=== PATIENT | female | born 1950 ===

== ENCOUNTER 2018-02-15 06:40 | Emergency (ER) | payer OTHER ==
[2018-02-15 07:08] VITALS: O2SAT 98
[2018-02-15] MEDS ORDERED: Sodium Chloride 0.9% 1,000 ML IV ONE (07:37)
[2018-02-15] MEDS ORDERED: Sodium Chloride 0.9% 1,000 ML ONE (07:55)
[2018-02-15] MEDS ORDERED: Morphine 4 MG/ML VIAL ONE (07:55)
--- NOTE | 2018-02-15 07:58 | RAD ---
PROCEDURE: CHEST RADIOGRAPH, 1 VIEW HISTORY: abd pain COMPARISON: None available. FINDINGS: LUNGS: Clear. Low-normal lung volumes PLEURA: No pneumothorax or pleural fluid seen. CARDIOVASCULAR: Normal. OSSEOUS STRUCTURES: No significant abnormalities. VISUALIZED UPPER ABDOMEN: Normal. OTHER FINDINGS: None. IMPRESSION: No active disease.
--- NOTE | 2018-02-15 08:11 | C.PDOC ---
History Of Present Illness 67 y/o female presents to the ER complaining of abdominal pain which has been present for the past 2 days. Patient states that the pain is located in the upper abdomen. Patient reports that the pain is associated with nausea, vomiting , and non-bloody diarrhea. Denies having CP, SOB, hx of abdominal surgeries, and sick contacts. Time Seen by Provider: 02/15/18 07:12 Chief Complaint (Nursing): Abdominal Pain History Per: Patient History/Exam Limitations: no limitations Onset/Duration Of Symptoms: Days Current Symptoms Are (Timing): Still Present Severity: Moderate Associated Symptoms: Nausea, Vomiting, Diarrhea. denies: Fever, Chills Past Medical History Reviewed: Historical Data, Nursing Documentation, Vital Signs Vital Signs: Last Vital Signs Temp 98.4 F 02/15/18 10:38 Pulse 82 02/15/18 10:38 Resp 18 02/15/18 10:38 BP 102/64 02/15/18 10:38 Pulse Ox 98 02/15/18 10:57 - Medical History PMH: Hyperlipidemia Surgical History: No Surg Hx Family History: States: No Known Family Hx - Social History Hx Alcohol Use: No Hx Substance Use: No Review Of Systems Except As Marked, All Systems Reviewed And Found Negative. Constitutional: Negative for: Fever, Chills Cardiovascular: Negative for: Chest Pain Respiratory: Negative for: Shortness of Breath Gastrointestinal: Positive for: Nausea, Vomiting, Abdominal Pain, Diarrhea Physical Exam - Physical Exam Appears: Non-toxic, No Acute Distress Skin: Normal Color, Warm, Dry Head: Atraumatic, Normacephalic Eye(s): bilateral: Normal Inspection Nose: Normal Oral Mucosa: Moist Neck: Supple Chest: Symmetrical Cardiovascular: Rhythm Regular Respiratory: Normal Breath Sounds, No Rales, No Rhonchi, No Wheezing Gastrointestinal/Abdominal: Bowel Sounds ((+) bowel sounds), Soft, Tenderness ( epigastric, RUQ and LUQ tenderness ) Neurological/Psych: Oriented x3, Normal Speech ED Course And Treatment - Laboratory Results Result Diagrams: 02/15/18 08:16 02/15/18 08:16 ECG: Interpreted By Me, Viewed By Me ECG Rhythm: Sinus Rhythm Interpretation Of ECG: NSR with normla intervals, normal axises, and non- specific ST/T wave changes Rate From EC O2 Sat by Pulse Oximetry: 98 (RA) Pulse Ox Interpretation: Normal - Radiology CXR: Interpreted by Me, Viewed By Me CXR Interpretation: Yes: No Acute Disease - CT Scan/US CT - Abd. & Pelv. Other Rad Studies (CT/US): Read By Radiologist, Radiology Report Reviewed CT/US Interpretation: PROCEDURE: CT Abdomen and Pelvis with intravenous contrast. HISTORY: Abdominal pain. COMPARISON: None. TECHNIQUE: Multiple contiguous axial images were performed through the abdomen and pelvis with the use of intravenous contrast. Subsequently, sagittal and coronal reformatted images were obtained. Contrast dose: 100 cc of Visipaque 320 intravenous contrast. Radiation dose: Total exam DLP = 261 mGy-cm. This CT exam was performed using one or more of the following dose reduction techniques: Automated exposure control, adjustment of the mA and/or kV according to patient size, and/or use of iterative reconstruction technique. FINDINGS: LOWER THORAX : Scattered atelectasis. Some focal nodular consolidation noted within the posterior aspect of the lingula. LIVER: Mild fatty infiltration of the liver. GALLBLADDER AND BILE DUCTS: Unremarkable. PANCREAS: Unremarkable. No gross lesion or ductal dilatation. SPLEEN: Unremarkable. ADRENALS: Unremarkable. No mass. KIDNEYS AND URETERS: Unremarkable. No hydronephrosis. No solid mass. VASCULATURE: Unremarkable. No aortic aneurysm. BOWEL: Mild gastric wall thickening. Few distended loops of small bowel seen within the upper mid abdomen. Fluid-filled colon suggestive for diarrhea illness. APPENDIX: Grossly preserved. PERITONEUM: Unremarkable. No free fluid. No free air. LYMPH NODES: Unremarkable. No enlarged lymph nodes. BLADDER: Unremarkable. REPRODUCTIVE: 2.4 centimeter right adnexal cyst. Clinical correlation. BONES : Degenerative changes in the spine. OTHER FINDINGS: Small fat containing ventral abdominal wall hernia. IMPRESSION: Fluid-filled colon suggestive for diarrhea illness. Mild gastric thickening, nonspecific. Clinical correlation. Few mildly distended loops of small bowel in the upper mid abdomen. Clinical correlation. Underlying gastroenteritis cannot be excluded. Clinical correlation. Fatty infiltration of the liver. 2.4 centimeter right adnexal cyst. Clinical correlation. Scattered atelectasis within the lung smith with some focal nodular consolidation at the posterior aspect of the lingula. Medical Decision Making Medical Decision Making: Assessment: Abdominal Pain Plan: --Labs --UA --ECG --CXR --CT -Abd & Pelv. -- Morphine IV --Protonix IV -- IV Fluids Patient state improvement in symptoms. Will discharge home to follow up with pmd in 2 days. Disposition Counseled Patient/Family Regarding: Studies Performed, Diagnosis, Need For Followup, Rx Given - Disposition Referrals: [facility] [Outside] Disposition: HOME/ ROUTINE Disposition Time: 10:01 Condition: IMPROVED Additional Instructions: follow up with your doctor in 2 days call to make an appointment take medications as prescribed return to ER if symptoms worsens or progress Prescriptions: Famotidine [Pepcid] 20 mg PO BID #20 tab Ondansetron ODT [Zofran ODT] 4 mg PO TID PRN #12 odt PRN Reason: Nausea/Vomiting Instructions: Acute Abdomen (Belly Pain), Adult (DC) Forms: Gen Discharge Inst Georgian, mcTEL (Georgian) Print Language: STATELESS - Clinical Impression Clinical Impression: Abdominal pain - Scribe Statement The provider has reviewed the documentation as recorded by the Dennys Monge Provider Attestation: All medical record entries made by the Dennys were at my direction and personally dictated by me. I have reviewed the chart and agree that the record accurately reflects my personal performance of the history, physical exam, medical decision making, and the department course for this patient. I have also personally directed, reviewed, and agree with the discharge instructions and disposition.
[2018-02-15 08:19] LABS: BASO % 0.2 % (0.0-2.0); EOS # 0.1 K/uL (0.0-0.7); EOS % 0.7 % (0.0-4.0); HEMOGLOBIN 14.4 g/dL (11.0-16.0); LYMPH # 0.7 K/uL (1.0-4.3); LYMPH % 9.6 % (20.0-40.0); MEAN CELL VOLUME 87.2 fL (81.0-99.0); MEAN CORPUSCULAR HEMOGLOBIN 30.3 pg (27.0-31.0); MEAN CORPUSCULAR HGB CONC 34.7 g/dL (33.0-37.0); MEAN PLATELET VOLUME 8.5 fL (7.2-11.7); MONO # 0.5 K/uL (0.0-0.8); MONO % 6.3 % (0.0-10.0); NEUT # 6.5 K/uL (1.8-7.0); NEUT % 83.2 % (50.0-75.0); NRBC % 0.1 % (0.0-2.0); PLATELET COUNT 304 K/uL (130-400); RBC 4.75 Mil/uL (3.80-5.20); RED CELL DISTRIBUTION WIDTH 14.4 % (11.5-14.5); WHITE BLOOD COUNT 7.8 K/uL (4.8-10.8)
[2018-02-15 08:31] LABS: ALB/GLOB RATIO 0.9 (1.0-2.1); ALBUMIN 4.3 g/dL (3.5-5.0); ALT/SGPT 21 U/L (9-52); AST/SGOT 22 U/L (14-36); BLOOD UREA NITROGEN 14 mg/dL (7-17); CALCIUM 9.5 mg/dl (8.6-10.4); GFR AFRICAN-AMERICAN > 60; GFR NON-AFRICAN AMERICAN > 60; LIPASE 60 U/L (23-300)
[2018-02-15 08:32] LABS: URINE BILIRUBIN NEGATIVE (NEGATIVE); URINE BLOOD 1+ (NEGATIVE); URINE CLARITY Hazy (Clear); URINE COLOR Yellow (YELLOW); URINE GLUCOSE (UA) NORMAL (Normal); URINE LEUKOCYTE ESTERASE 2+ Leu/uL (Negative); URINE PROTEIN 1+ mg/dL (NEGATIVE); URINE UROBILINOGEN NORMAL mg/dL (0.2-1.0)
[2018-02-15 08:33] LABS: SQUAMOUS EPITHIAL 2 /hpf (0-5); URINE BACTERIA RARE (<OCC)
[2018-02-15 08:48] LABS: BANDS 5 % (0-2); EOSINOPHIL 1 % (0-4); LYMPHOCYTE 8 % (20-40); MONOCYTE 8 % (0-10); NEUTROPHIL 77 % (50-75); PLATELET ESTIMATE NORMAL (NORMAL); REACTIVE LYMPHOCYTES 1 % (0-0); TOTAL CELLS COUNTED 100
[2018-02-15 08:49] LABS: OVALOCYTES SLIGHT
[2018-02-15] MEDS ORDERED: Iodixanol 320 MG/ML 100 ML BOTTLE IV ONE (09:05)
--- NOTE | 2018-02-15 09:34 | CT ---
PROCEDURE: CT Abdomen and Pelvis with intravenous contrast HISTORY: Abdominal pain COMPARISON: None. TECHNIQUE: Multiple contiguous axial images were performed through the abdomen and pelvis with the use of intravenous contrast. Subsequently, sagittal and coronal reformatted images were obtained. Contrast dose: 100 cc of Visipaque 320 intravenous contrast. Radiation dose: Total exam DLP = 261 mGy-cm. This CT exam was performed using one or more of the following dose reduction techniques: Automated exposure control, adjustment of the mA and/or kV according to patient size, and/or use of iterative reconstruction technique. FINDINGS: LOWER THORAX: Scattered atelectasis. Some focal nodular consolidation noted within the posterior aspect of the lingula. LIVER: Mild fatty infiltration of the liver. GALLBLADDER AND BILE DUCTS: Unremarkable. PANCREAS: Unremarkable. No gross lesion or ductal dilatation. SPLEEN: Unremarkable. ADRENALS: Unremarkable. No mass. KIDNEYS AND URETERS: Unremarkable. No hydronephrosis. No solid mass. VASCULATURE: Unremarkable. No aortic aneurysm. BOWEL: Mild gastric wall thickening. Few distended loops of small bowel seen within the upper mid abdomen. Fluid-filled colon suggestive for diarrhea illness. APPENDIX: Grossly preserved. PERITONEUM: Unremarkable. No free fluid. No free air. LYMPH NODES: Unremarkable. No enlarged lymph nodes. BLADDER: Unremarkable. REPRODUCTIVE: 2.4 centimeter right adnexal cyst. Clinical correlation. BONES: Degenerative changes in the spine. OTHER FINDINGS: Small fat containing ventral abdominal wall hernia. IMPRESSION: Fluid-filled colon suggestive for diarrhea illness. Mild gastric thickening, nonspecific. Clinical correlation. Few mildly distended loops of small bowel in the upper mid abdomen. Clinical correlation. Underlying gastroenteritis cannot be excluded. Clinical correlation. Fatty infiltration of the liver. 2.4 centimeter right adnexal cyst. Clinical correlation. Scattered atelectasis within the lung smith with some focal nodular consolidation at the posterior aspect of the lingula.
[2018-02-15 10:39] VITALS: BP 102/64; PULSE 82; RESP 18; TEMP 98.4
--- NOTE | 2018-02-18 05:56 | CARD ---
APPROVED REPORT EKG Measurement Heart [id number] <Conclusion> Normal sinus rhythm Nonspecific T wave abnormality Abnormal ECG
== END 2018-02-15 10:39 | disposition home or self-care (01) ==
LOC: C.ER 06:40
DX: R10.9 Unspecified abdominal pain (principal); E78.5 Hyperlipidemia, unspecified
CPT/HCPCS: 71045; 74177; 80053; 81001; 82948; 83690; 84484; 85025; 96374; 96375; 99285; C9113; J2270; J7030; Q9967